=== PATIENT | female | born 1985 | race Caucasian/White ===

== ENCOUNTER 2017-02-19 11:50 | Emergency (ER) | payer SELFPAY ==
--- NOTE | 2017-02-19 12:43 | ER Document Report ---
ED Medical Screen (RME) - General Chief Complaint: Near Syncope Stated Complaint: WEAKNESS Time Seen by Provider: 02/19/17 12:40 Notes: Patient went to work this morning feeling well and normal. 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 About 10:45 AM, she had heavy sweating, began to feel lightheaded, noted her heartbeat to be erratic. She went into the cooler at work which helped her symptoms some. She was a little bit nauseated but did not vomit. Denied any chest pain. Is feeling back to about normal now. Has not had any fever or other illness. TRAVEL OUTSIDE OF THE [place] IN LAST 30 DAYS: No - Related Data Allergies/Adverse Reactions: No Known Allergies Allergy (Verified 02/19/17 12:04) Past Medical History - Social History Chew tobacco use (# tins/day): No Frequency of alcohol use: None Drug Abuse: None Renal/ Medical History: Denies: Hx Peritoneal Dialysis Surgical Hx: Negative Physical Exam - Vital signs Vitals: Temp Pulse Resp BP Pulse Ox 97.8 F 83 20 134/75 H 96 02/19/17 12:02 02/19/17 12:02 02/19/17 12:02 02/19/17 12:02 02/19/17 12:02 Course - Vital Signs Vital signs: Temp Pulse Resp BP Pulse Ox 97.8 F 83 20 134/75 H 96 02/19/17 12:02 02/19/17 12:02 02/19/17 12:02 02/19/17 12:02 02/19/17 12:02
[2017-02-19 13:20] LABS: ABSOLUTE BASOPHILS # (AUTO) 0.1 10^3/uL (0.0-0.2); ABSOLUTE EOSINOPHILS # (AUTO) 0.4 10^3/uL (0.0-0.6); ABSOLUTE MONOCYTES (AUTO) 0.6 10^3/uL (0.1-1.4); ABSOLUTE NEUT (AUTO) 3.9 10^3/uL (1.7-8.2); BASOPHILS % (AUTO) 0.9 % (0-2); EOSINOPHILS % (AUTO) 5.8 % (0-6); HEMATOCRIT 40.5 % (36.0-47.0); HEMOGLOBIN 14.2 g/dL (12.0-15.5); HGB HCT DIFFERENCE 2.1; LYMPHOCYTES % (AUTO) 28.5 % (13-45); MEAN CORPUSCULAR HEMOGLOBIN 32.3 pg (27.0-33.4); MEAN CORPUSCULAR HGB CONC 35.1 g/dL (32.0-36.0); MEAN CORPUSCULAR VOLUME 92 fl (80-97); MONOCYTES % (AUTO) 8.4 % (3-13); RED CELL DISTRIBUTION WIDTH 14.8 % (11.5-14.0); SEGMENTED NEUTROPHILS % (AUTO) 56.4 % (42-78); WHITE BLOOD COUNT 6.9 10^3/uL (4.0-10.5)
[2017-02-19 13:42] LABS: ALANINE AMINOTRANSFERASE 30 U/L (9-52); ALBUMIN 4.4 g/dL (3.5-5.0); ALKALINE PHOSPHATASE 64 U/L (38-126); ANION GAP 11 (5-19); ASPARTATE AMINO TRANSFERASE 21 U/L (14-36); BILIRUBIN,DIRECT 0.3 mg/dL (0.0-0.4); BILIRUBIN,TOTAL 0.3 mg/dL (0.2-1.3); BLOOD UREA NITROGEN 22 mg/dL (7-20); CALCIUM 9.9 mg/dL (8.4-10.2); CARBON DIOXIDE 26 mmol/L (22-30); CHLORIDE 102 mmol/L (98-107); CREATININE RESULT 0.64 mg/dL (0.52-1.25); GLUCOSE 86 mg/dL (75-110); POTASSIUM 4.1 mmol/L (3.6-5.0); SODIUM 138.9 mmol/L (137-145); TOTAL PROTEIN 7.5 g/dL (6.3-8.2)
--- NOTE | 2017-02-19 13:56 | EKG REPORT ---
SEVERITY:- BORDERLINE ECG - SINUS RHYTHM INFERIOR Q WAVES, PROBABLY NORMAL VARIATION : Confirmed by: Cesar Hand MD 19-Feb-2017 13:55:32
--- NOTE | 2017-02-19 14:19 | ER Document Report ---
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 She did step in the cooler and started to feel better. She became very lightheaded after leaving the cooler trying to go back to work and almost passed out. Patient denies any nausea, vomiting, headache. She reports a history of doing this before when she gets too hot. TRAVEL OUTSIDE OF THE [place] IN LAST 30 DAYS: No - Related Data Allergies/Adverse Reactions: No Known Allergies Allergy (Verified 02/19/17 12:04) Past Medical History - General Information source: Patient - Social History Smoking Status: Current Every Day Smoker Chew tobacco use (# tins/day): No Frequency of alcohol use: None Drug Abuse: None Family History: Reviewed & Not Pertinent Renal/ Medical History: Denies: Hx Peritoneal Dialysis Surgical Hx: Negative Review of Systems - Review of Systems Constitutional: See HPI EENT: No symptoms reported Cardiovascular: No symptoms reported Respiratory: No symptoms reported Gastrointestinal: No symptoms reported Genitourinary: No symptoms reported Female Genitourinary: No symptoms reported Musculoskeletal: No symptoms reported Skin: No symptoms reported Hematologic/Lymphatic: No symptoms reported Neurological/Psychological: See HPI Physical Exam - Vital signs Vitals: Temp Pulse Resp BP Pulse Ox 97.8 F 83 20 134/75 H 96 02/19/17 12:02 02/19/17 12:02 02/19/17 12:02 02/19/17 12:02 02/19/17 12:02 - Notes Notes: PHYSICAL EXAMINATION: GENERAL: Well-appearing and in no acute distress. HEAD: Atraumatic, normocephalic. EYES: Pupils equal round and reactive to light, extraocular movements intact, sclera anicteric, conjunctiva are normal. ENT: ear canals without erythema or foreign body, TMs pearly julio with good bony landmarks, nares patent, oropharynx clear without exudates. Moist mucous membranes. NECK: Normal range of motion, supple without lymphadenopathy LUNGS: CTAB and equal. No wheezes rales or rhonchi. HEART: Regular rate and rhythm without murmurs ABDOMEN: Soft, no tenderness. No guarding, no rebound BACK: no vertebral tenderness, normal ROM GI/: no CVA tenderness EXTREMITIES: Normal range of motion, no pitting edema. No cyanosis. NEUROLOGICAL: Cranial nerves grossly intact. Normal sensory/motor exams. PSYCH: Normal mood, normal affect. SKIN: Warm, Dry, normal turgor, no rashes or lesions noted Course - Re-evaluation Re-evalutation: 02/19/17 20:44 Patient felt much better on my exam with her, just needed a work note and wanted to leave. - Vital Signs Vital signs: Temp Pulse Resp BP Pulse Ox 98.5 F 79 16 122/75 98 02/19/17 14:30 02/19/17 14:30 02/19/17 14:30 02/19/17 14:30 02/19/17 14:30 - Laboratory Result Diagrams: 02/19/17 12:52 02/19/17 12:52 Laboratory results interpreted by me: 02/19/17 02/19/17 12:52 12:52 RDW 14.8 H BUN 22 H Discharge - Discharge Clinical Impression: Near syncope Condition: Stable Disposition: HOME, SELF-CARE Additional Instructions: Please drink plenty of fluids. Return immediately for any new or worsening symptoms. Follow up with primary care provider, call tomorrow to make followup appointment. Forms: Return to Work
[2017-02-19 14:34] VITALS: BP 122/75
== END 2017-02-19 14:34 | disposition home or self-care (01) ==
LOC: ER 11:50
DX: R55 Syncope and collapse (principal); F17.200 Nicotine dependence, unspecified, uncomplicated
CPT/HCPCS: 36415; 80053; 84484; 85025; 93005; 93010; 99284

== ENCOUNTER 2017-04-07 09:49 | Emergency (ER) | payer SELFPAY ==
--- NOTE | 2017-04-07 10:41 | ER Document Report ---
HPI - HPI Patient complains to provider of: Left upper eyelid swelling Onset: This morning Onset/Duration: Sudden Quality of pain: Burning Severity: Moderate Pain Level: 3 Context: Patient states she woke up this morning with swelling to inner upper left eyelid. Denies discharge or tearing from the left eye. Patient did wear contacts yesterday but has not had any problems with them. Eyeball itself is not itchy or painful. Associated Symptoms: None Exacerbated by: Denies Relieved by: Denies Similar symptoms previously: No Recently seen / treated by doctor: No - ROS ROS below otherwise negative: Yes Systems Reviewed and Negative: Yes All other systems reviewed and negative - CONSTITUTIONAL Constitutional: DENIES: Fever - EENT EENT: REPORTS: Eye problems - left. DENIES: Congestion - NEURO Neurology: DENIES: Headache - CARDIOVASCULAR Cardiovascular: DENIES: Chest pain - RESPIRATORY Respiratory: DENIES: Trouble Breathing - GASTROINTESTINAL Gastrointestinal: DENIES: Abdominal Pain - URINARY Urinary: DENIES: Dysuria - REPRODUCTIVE LMP: 04/02/17 - MUSCULOSKELETAL Musculoskeletal: DENIES: Extremity pain - DERM Skin Color: Erythema - Left upper eyelid Past Medical History - General Information source: Patient - Social History Smoking Status: Current Every Day Smoker Frequency of alcohol use: None Drug Abuse: None Lives with: Family Family History: Reviewed & Not Pertinent Patient has suicidal ideation: No Patient has homicidal ideation: No - Medical History Medical History: Negative Surgical Hx: Negative Vertical Provider Document - CONSTITUTIONAL Agree With Documented VS: Yes Exam Limitations: No Limitations General Appearance: WD/WN, No Apparent Distress - INFECTION CONTROL TRAVEL OUTSIDE OF THE [place] IN LAST 30 DAYS: No - HEENT HEENT: Normal ENT Exam, Normocephalic, PERRLA. negative: Conjuctival Injection Notes: Left inner upper eyelid with minimal edema and eythema along lash line. One small pinpoint area of increased redness without firmness noted. no stye noted. Sclera normal bilaterally without drainage or tearing. - NECK Neck: Normal Inspection - RESPIRATORY Respiratory: Breath Sounds Normal, No Respiratory Distress - CARDIOVASCULAR Cardiovascular: Regular Rate, Regular Rhythm - MUSCULOSKELETAL/EXTREMETIES Musculoskeletal/Extremeties: MAEW - NEURO Level of Consciousness: Awake, Alert, Appropriate - DERM Integumentary: Warm, Dry Discharge - Discharge Clinical Impression: Cellulitis of left upper eyelid Condition: Good Disposition: HOME, SELF-CARE Instructions: Eyedrop Use ([facility]) Additional Instructions: Take all antibiotics as prescribed and use eyedrops as directed. Warm compresses to eye No contacts for 7-10 days Tylenol or ibuprofen as needed for discomfort Follow-up with your eye doctor Thursday for recheck if no improvement, earlier if worsens Return as needed Prescriptions: Cephalexin [Cephalexin 500 MG Capsule] 1 cap PO QID #28 capsule Polymyxin B Sulfate/Tmp [Polytrim Oph Soln 10 ml] 1 dose OS ASDIR #1 bottle Forms: Return to Work
[2017-04-07 11:11] VITALS: BP 117/77
== END 2017-04-07 11:11 | disposition home or self-care (01) ==
LOC: ER 09:49
DX: H00.034 Abscess of left upper eyelid (principal)
CPT/HCPCS: 99283

== ENCOUNTER 2018-01-11 21:46 | Emergency (ER) | payer BC ==
[2018-01-11 23:40] LABS: ABSOLUTE BASOPHILS # (AUTO) 0.1 10^3/uL (0.0-0.2); ABSOLUTE EOSINOPHILS # (AUTO) 0.4 10^3/uL (0.0-0.6); ABSOLUTE LYMPHOCYTES (AUTO) 1.8 10^3/uL (0.5-4.7); ABSOLUTE MONOCYTES (AUTO) 0.6 10^3/uL (0.1-1.4); BASOPHILS % (AUTO) 1.1 % (0-2); EOSINOPHILS % (AUTO) 5.3 % (0-6); HEMATOCRIT 40.4 % (36.0-47.0); HEMOGLOBIN 14.1 g/dL (12.0-15.5); LYMPHOCYTES % (AUTO) 26.8 % (13-45); MEAN CORPUSCULAR HEMOGLOBIN 33.1 pg (27.0-33.4); MEAN CORPUSCULAR HGB CONC 34.8 g/dL (32.0-36.0); MEAN CORPUSCULAR VOLUME 95 fl (80-97); MONOCYTES % (AUTO) 9.2 % (3-13); PLATELET COUNT 230 10^3/uL (150-450); RED BLOOD COUNT 4.24 10^6/uL (3.72-5.28); RED CELL DISTRIBUTION WIDTH 13.5 % (11.5-14.0); SEGMENTED NEUTROPHILS % (AUTO) 57.6 % (42-78); TOTAL CELLS COUNTED % (AUTO) 100 %; WHITE BLOOD COUNT 6.9 10^3/uL (4.0-10.5)
--- NOTE | 2018-01-11 23:47 | ER Document Report ---
ED Medical Screen (RME) - General Chief Complaint: OB Problem (<20wks) Stated Complaint: WEAKNESS Time Seen by Provider: 01/11/18 23:42 TRAVEL OUTSIDE OF THE [place] IN LAST 30 DAYS: No - HPI Notes: 01/11/18 23:43 Patient is a 32-year-old female who presents to the ED complaining of suprapubic pain, vaginal spotting this morning, occasional epigastric burning, low back pain 1 day. Patient states that she did have some nausea and dry heaves this morning. She had 2 home test positive over the last couple weeks. Patient states that she is still able to eat and drink, but does have a decreased p.o. intake today. She is urinating normally and having normal bowel movements. Patient states that the vaginal spotting has since resolved. Patient does admit to smoking but denies IV drug use. Denies any drug allergies. Denies any headache, fever, neck pain, URI, sore throat, chest pain (reiterated with patient due to pivot sheet- more of a burning and points near the epigstrum), palpitations, syncope, cough, shortness of breath, wheeze, dyspnea, vomiting/diarrhea, urinary retention, dysuria, hematuria, loss of control of bowel or bladder, numbness/tingling, saddle anesthesia, muscle paralysis/weakness, or rash. I have treated and performed a rapid initial assessment of this patient. A comprehensive ED assessment and evaluation of the patient, analysis of test results and completion of medical decision making process will be conducted by additional ED providers. PHYSICAL EXAMINATION: GENERAL: Well-appearing, well-nourished and in no acute distress. A&Ox4. Answers questions appropriately. LUNGS: Breath sounds clear to auscultation bilaterally and equal. No wheezes rales or rhonchi. HEART: Regular rate and rhythm without murmurs, rubs, gallops. ABDOMEN: Soft, nondistended abdomen. No guarding, no rebound. No masses appreciated. Normal bowel sounds present. No CVA tenderness bilaterally. + mild suprapubic tenderness (cannot elicit thorough abd exam w/o table, however). Back: + mild tenderness to the L-paraspinal mm b/l correlates with pain described. No vertebral point tenderness. No erythema/ecchymosis. SLR neg b/ l. No foot drop. Extremities: No cyanosis, clubbing, or edema b/l. NEUROLOGICAL: Normal speech, normal gait. PSYCH: Normal mood, normal affect. - Related Data Allergies/Adverse Reactions: No Known Allergies Allergy (Verified 04/07/17 09:59) Past Medical History Renal/ Medical History: Denies: Hx Peritoneal Dialysis Physical Exam - Vital signs Vitals: Temp Pulse Resp BP Pulse Ox 98.1 F 76 17 141/73 H 100 01/11/18 22:29 01/11/18 22:29 01/11/18 22:29 01/11/18 22:29 01/11/18 22:29 Course - Vital Signs Vital signs: Temp Pulse Resp BP Pulse Ox 98.1 F 76 17 141/73 H 100 01/11/18 22:29 01/11/18 22:29 01/11/18 22:29 01/11/18 22:29 01/11/18 22:29 - Laboratory Result Diagrams: 01/11/18 23:20 01/11/18 23:20
[2018-01-11 23:50] LABS: APPEARANCE,URINE SLIGHTLY-CLOUDY; BILIRUBIN,URINE NEGATIVE (NEGATIVE); COLOR,URINE YELLOW; GLUCOSE, URINE NEGATIVE (NEGATIVE); KETONES,URINE NEGATIVE (NEGATIVE); LEUKOCYTE ESTERASE,URINE NEGATIVE (NEGATIVE); NITRITE,URINE NEGATIVE (NEGATIVE); PROTEIN,URINE NEGATIVE (NEGATIVE); URINE SPECIFIC GRAVITY 1.014; UROBILINOGEN,URINE NEGATIVE mg/dL (<2.0)
[2018-01-12 00:07] LABS: ALANINE AMINOTRANSFERASE 31 U/L (9-52); ALBUMIN 4.1 g/dL (3.5-5.0); ALKALINE PHOSPHATASE 44 U/L (38-126); ANION GAP 10 (5-19); ASPARTATE AMINO TRANSFERASE 23 U/L (14-36); BILIRUBIN,DIRECT 0.2 mg/dL (0.0-0.4); BILIRUBIN,TOTAL 0.2 mg/dL (0.2-1.3); BLOOD UREA NITROGEN 17 mg/dL (7-20); CALCIUM 9.4 mg/dL (8.4-10.2); CARBON DIOXIDE 25 mmol/L (22-30); CHLORIDE 105 mmol/L (98-107); GLUCOSE 78 mg/dL (75-110); POTASSIUM 4.4 mmol/L (3.6-5.0); SODIUM 139.9 mmol/L (137-145); TOTAL PROTEIN 6.9 g/dL (6.3-8.2)
[2018-01-12 01:56] VITALS: BP 123/68
--- NOTE | 2018-01-12 01:59 | ER Document Report ---
ED General - General Chief Complaint: OB Problem (<20wks) Stated Complaint: WEAKNESS Time Seen by Provider: 01/11/18 23:42 Notes: Patient is a 32 year old female at unknown gestational age who presents with multiple complaints. Her main complaint at the time of my assessment is severe anxiety about being in the hospital. She states that she has a severe phobia of hospitals and would like to leave. She denies many of the initial complaints provided in triage including abdominal pain or vaginal bleeding. She states that her main complaint has been feeling mostly fatigued and very tired over the past several weeks as well as having intermittent nausea. Nothing improves or worsens her symptoms. She has never been in the past. She has not established care for this . She is uncertain of whether or not she wants to continue with this . Nothing improves or worsens her symptoms. TRAVEL OUTSIDE OF THE [place] IN LAST 30 DAYS: No - Related Data Allergies/Adverse Reactions: No Known Allergies Allergy (Verified 04/07/17 09:59) Past Medical History - General Information source: Patient - Social History Smoking Status: Never Smoker Chew tobacco use (# tins/day): No Frequency of alcohol use: None Drug Abuse: None Lives with: Spouse/Significant other Family History: Reviewed & Not Pertinent Patient has suicidal ideation: No Patient has homicidal ideation: No Renal/ Medical History: Denies: Hx Peritoneal Dialysis Review of Systems - Review of Systems Notes: Constitutional: Negative for fever. HENT: Negative for sore throat. Eyes: Negative for visual changes. Cardiovascular: Negative for chest pain. Respiratory: Negative for shortness of breath. Gastrointestinal: Negative for abdominal pain, vomiting or diarrhea. Genitourinary: Negative for dysuria. Musculoskeletal: Negative for back pain. Skin: Negative for rash. Neurological: Negative for headaches, weakness or numbness. 10 point ROS negative except as marked above and in HPI. Physical Exam - Vital signs Vitals: Temp Pulse Resp BP Pulse Ox 98.1 F 76 17 141/73 H 100 01/11/18 22:29 01/11/18 22:29 01/11/18 22:29 01/11/18 22:29 01/11/18 22:29 Interpretation: Hypertensive Notes: PHYSICAL EXAMINATION: GENERAL: Well-appearing, well-nourished and in no acute distress. HEAD: Atraumatic, normocephalic. EYES: Pupils equal round and reactive to light, extraocular movements intact, sclera anicteric, conjunctiva are normal. ENT: nares patent, oropharynx clear without exudates. Moist mucous membranes. NECK: Normal range of motion, supple without lymphadenopathy LUNGS: Breath sounds clear to auscultation bilaterally and equal. No wheezes rales or rhonchi. HEART: Regular rate and rhythm without murmurs ABDOMEN: Soft, nontender, normoactive bowel sounds. No guarding, no rebound. No masses appreciated. EXTREMITIES: Normal range of motion, no pitting or edema. No cyanosis. NEUROLOGICAL: No focal neurological deficits. Moves all extremities spontaneously and on command. PSYCH: Highly anxious, tearful SKIN: Warm, Dry, normal turgor, no rashes or lesions noted. Course - Re-evaluation Re-evalutation: 01/12/18 01:57 Patient presents with multiple vague complaints that did not appear to be concerning for any acute life-threatening pathology. Patient is currently but denies any abdominal pain. Vitals are within normal limits at triage and at time of discharge. Physical examination is unremarkable with exception of severe anxiety. Patient has tolerated oral intake without difficulty. At this time, based on the reassuring evaluation, I do not suspect an acute [place], pulmonary embolus, aortic dissection, acute intra- abdominal pathology, stroke, or sepsis. The patient was offered and declined a transvaginal ultrasound to further clarify her stating she has severe anxiety about hospitals and she does not wish to remain in the emergency room and any longer. Given she does not complain of any abdominal pain and is no abdominal pain on examination I have a very low clinical suspicion of an ectopic . will discharge with return precautions and follow-up recommendations. Verbal discharge instructions given a the bedside and opportunity for questions given. Medication warnings reviewed. Patient is in agreement with this plan and has verbalized understanding of return precautions and the need for primary care follow-up in the next 24-72 hours. - Vital Signs Vital signs: Temp Pulse Resp BP Pulse Ox 98.1 F 66 16 123/68 99 01/12/18 01:53 01/12/18 01:53 01/12/18 01:53 01/12/18 01:53 01/12/18 01:53 - Laboratory Result Diagrams: 01/11/18 23:20 01/11/18 23:20 Laboratory results interpreted by me: 01/11/18 01/11/18 23:20 23:20 Beta HCG, Quant 9246.00 H Urine Blood SMALL H Urine Ascorbic Acid 20 H Discharge - Discharge Clinical Impression: First trimester , General weakness Bipolar disorder Qualifiers: Active/Remission status: remission status unspecified Qualified Code(s): F31.9 - Bipolar disorder, unspecified Condition: Good Disposition: HOME, SELF-CARE Additional Instructions: You have been seen for vomiting during . You should continue to drink plenty of water and consider taking a solution such as Pedialyte if your having difficulty eating food. Please return if you become unable to drink any fluids for more than 12 hours, urinate less than twice a day, pass out, have progressively worsening abdominal pain, develop a fever, have vaginal bleeding or vaginal discharge, or have any other symptoms that are concerning to you. For nausea and vomiting during I recommend: Start with 10-12.5 mg of pyridoxine (vitamin B6) three times a day for 2 days. If not fully effective, Increase to 12.5 mg of pyridoxine four times a day for 2 days. If not fully effective, Increase to 25 mg of pyridoxine three times a day for 2 days. If not fully effective, Continue 25 mg pyridoxine 3 times a day, and add 12.5 mg of doxylamine before bedtime each day for 2 days. If not fully effective, Continue 25 mg pyridoxine 3 times a day, and take 12.5 mg of doxylamine twice a day. If not fully effective, Continue 25 mg pyridoxine 3 times a day, and take 12.5 mg of doxylamine three times a day. If not fully effective, Continue 25 mg pyridoxine 3 times a day, and 12.5 mg of doxylamine 3 times a day , while adding Emetrol, one to two tablespoons (15-30 cc) taken once or twice a day as needed. (Emetrol is an [id number] mixture of sugar syrups and phosphoric acid [phosphorylated carbohydrate solution]) that acts by soothing the actual wall of the gastrointestinal tract). If not fully effective, Consult with your doctor. Referrals: GABRIELLE BUCIO PA [Primary Care Provider] - Follow up as needed
== END 2018-01-12 02:11 | disposition home or self-care (01) ==
LOC: ER 21:46
DX: O26.891 Other specified pregnancy related conditions, first trimester (principal); R53.1 Weakness; F31.9 Bipolar disorder, unspecified; F41.9 Anxiety disorder, unspecified; R11.0 Nausea; Z3A.00 Weeks of gestation of pregnancy not specified
CPT/HCPCS: 36415; 80053; 81001; 84702; 85025; 86900; 86901; 87086; 99284

== ENCOUNTER 2018-04-26 21:52 | Emergency (ER) | payer BC ==
[2018-04-26] MEDS ORDERED: NORMAL SALINE 1000 ML 1,000 ML IV ONE (21:55)
[2018-04-26] MEDS ORDERED: ONDANSETRON HCL INJ/PF 4 MG/2 ML SDV IV ONE (21:55)
[2018-04-26 22:04] VITALS: BP 126/79
== END 2018-04-26 23:27 | disposition left against medical advice (07) ==
LOC: ER 21:52
DX: Z53.21 Procedure and treatment not carried out due to patient leaving prior to being seen by health care provider (principal)